=== PATIENT | female | born 1955 | race Caucasian/White ===

== ENCOUNTER 2018-08-13 02:29 | Emergency (ER) | payer BC, MEDICARE ==
[2018-08-13] MEDS ORDERED: Nitroglycerin 0.4 MG TAB 1 EACH ONE (02:48)
[2018-08-13] MEDS ORDERED: Aspirin Chewable 81 MG TAB ONE (02:48)
[2018-08-13] MEDS ORDERED: Morphine 4 MG/ML VIAL ONE (03:07)
[2018-08-13] MEDS ORDERED: Ondansetron PF 4 MG/2 ML Vial ONE (03:07)
[2018-08-13 03:16] LABS: #Basophils 0.1 thou/uL (0.0-0.2); #Eosinphils 0.1 thou/uL (0.0-0.7); #Lymphocytes 3.1 thou/uL (1.20-3.40); #Monocytes 0.6 thou/uL (0.11-0.59); #Neutrophils 4.9 thou/uL (1.40-6.50); %Basophils 0.8 % (0.0-1.0); %Eosinophils 1.2 % (0.0-10.0); %Lymphocytes 35.5 % (21.0-51.0); %Neutrophils 55.6 % (42.0-75.0); Mean Corpuscular HGB CONC 34.3 g/dL (32.0-36.0); Mean Corpuscular Hemoglobin 32.1 pg (27.0-31.0); Mean Corpuscular Volume 93.5 fL (78.0-98.0); Mean Platelet Volume 5.7 fL (7.4-10.4); Platelet Count 308 thou/uL (130-400); RBC Distribution Width 12.8 % (11.5-14.5); Red Blood Cell (RBC) Count 4.37 mill/uL (4.20-5.40); White Blood Cell (WBC) Count 8.8 thou/uL (4.8-10.8)
[2018-08-13 03:21] LABS: ALT (SGPT) 62 U/L (8-55); AST (SGOT) 29 U/L (5-34); Albumin 4.4 g/dL (3.4-4.8); Alkaline Phosphatase 98 U/L (40-150); Anion Gap 16 mmol/L (10-20); BUN (Urea Nitrogen) 14 mg/dL (9.8-20.1); Bilirubin, Total 0.4 mg/dL (0.2-1.2); Calc. Creatinine Clearance 0 mL/min (70-130); Calcium 9.5 mg/dL (7.8-10.44); Carbon Dioxide 23 mmol/L (23-31); Chloride 110 mmol/L (98-107); Estimated GFR-MDRD 71; Globulin 3.3 g/dL (2.4-3.5); Glucose 96 mg/dL (80-115); Potassium 3.1 mmol/L (3.5-5.1); Protein, Total 7.7 g/dL (6.0-8.3); Sodium 146 mmol/L (136-145)
[2018-08-13] MEDS ORDERED: Potassium Chloride 20 MEQ TAB ONE (03:41)
--- NOTE | 2018-08-13 08:13 | RAD ---
PORTABLE CHEST: Date: 08/13/18 An AP portable film at 0247 hours shows a normal size heart and clear lungs. No acute infiltrate or e ffusion seen. There is no vascular congestion or edema. Mediastinum appears normal. IMPRESSION: No acute thoracic findings. POS: HOME
== END 2018-08-13 04:57 | disposition home or self-care (01) ==
LOC: BURERS 02:29
DX: R07.9 Chest pain, unspecified (principal); K21.9 Gastro-esophageal reflux disease without esophagitis; J44.9 Chronic obstructive pulmonary disease, unspecified; Z79.899 Other long term (current) drug therapy; Z79.51 Long term (current) use of inhaled steroids
CPT/HCPCS: 71045; 80053; 84484; 85025; 85379; 93005; 96374; 96375; J2270; J2405

== ENCOUNTER 2025-05-11 21:55 | Emergency (ER) | payer MEDICARE ==
[2025-05-11] MEDS ORDERED: dilTIAZem 25 MG/5 ML VIAL ONE (22:27)
[2025-05-11 22:29] LABS: #Basophils 0.1 thou/uL (0.0-0.2); #Eosinophils 0.1 thou/uL (0.0-0.7); #Lymphocytes 2.1 thou/uL (1.20-3.40); #Monocytes 0.7 thou/uL (0.11-0.59); #Neutrophils 3.8 thou/uL (1.40-6.50); %Basophils 0.8 % (0.0-1.0); %Eosinophils 2.1 % (0.0-10.0); %Lymphocytes 30.9 % (21.0-51.0); %Monocytes 10.2 % (0.0-10.0); %Neutrophils 56.0 % (42.0-75.0); Hematocrit 42.8 % (36.0-47.0); Hemoglobin 13.4 g/dL (12.0-16.0); Mean Corpuscular Hemoglobin 29.8 pg (27.0-31.0); Mean Corpuscular Volume 95.0 fl (78.0-98.0); Platelet Count 236 10x3/uL (130-400); Red Blood Cell (RBC) Count 4.51 mill/uL (4.20-5.40); White Blood Cell (WBC) Count 6.7 10x3/uL (4.8-10.8)
[2025-05-11 22:41] LABS: INR-International Normal Ratio 0.9; Prothrombin Time 12.6 sec (12.0-14.7)
[2025-05-11 22:42] LABS: PTT 29.1 sec (22.9-36.1)
[2025-05-11 22:48] LABS: ALT (SGPT) 10 U/L (Less than 34); AST (SGOT) 24 U/L (11-34); Albumin 4.5 g/dL (3.1-4.5); Alkaline Phosphatase 83 U/L (40-110); Anion Gap 18 mmol/L (10-20); BUN (Urea Nitrogen) 16 mg/dL (9.8-20.1); Bilirubin, Total 0.2 mg/dL (0.3-1.2); Calc. Creatinine Clearance 0 mL/min (70-130); Calcium 9.8 mg/dL (7.8-10.44); Carbon Dioxide 23 mmol/L (23-31); Chloride 108 mmol/L (98-107); Globulin 3.1 g/dL (2.4-3.5); Glucose 118 mg/dL (83-110); Potassium 3.7 mmol/L (3.5-5.1); Sodium 145 mmol/L (136-145)
[2025-05-11 22:55] LABS: Troponin I 0.021 ng/mL (< 0.028)
== END 2025-05-12 01:35 | disposition short-term general hospital (02) ==
LOC: BURERS 21:55
DX: I48.92 Unspecified atrial flutter (principal); J44.9 Chronic obstructive pulmonary disease, unspecified
CPT/HCPCS: 71045; 80053; 83880; 84484; 85025; 85610; 85730; 93005; 94760; 96374